=== PATIENT | male | born 1960 | race Caucasian/White ===

== ENCOUNTER 2024-06-13 06:47 | Day surgery (SDC) | payer OTHER ==
[~2024-06-13] VITALS: Ht 167.6 cm; Wt 84.1 kg
[~2024-06-13 06:47] MED LIST: SODIUM CHLORIDE 0.9% 1,000 ML ONE
[2024-06-13] MEDS ORDERED: ALBUTEROL SULFATE 2.5 MG/0.5 ML NEB SOLUTION NEB ONE (06:48)
[2024-06-13] MEDS ORDERED: LIDOCAINE 4% 50 ML SOLUTION TP ONE (06:48)
[2024-06-13] MEDS ORDERED: LIDOCAINE 2% 11 ML JELLY TP ONE (06:48)
[2024-06-13] MEDS ORDERED: BENZOCAINE 20% 50 MCG/SPRAY 57 GM TP ONE (06:48)
[2024-06-13] MEDS ORDERED: ASPI-1444 PO (07:25)
[2024-06-13] MEDS ORDERED: CHOL200059 PO (07:25)
[2024-06-13] MEDS ORDERED: ALEN70TA80 PO (07:25)
[2024-06-13] MEDS ORDERED: FURO20TA5 PO (07:31)
[2024-06-13] MEDS ORDERED: PANT-31 PO (07:31)
[2024-06-13] MEDS ORDERED: DOCU-385 PO (07:31)
[2024-06-13] MEDS ORDERED: TAMS0.4C94 PO (07:31)
[2024-06-13] MEDS ORDERED: SUCR1TAB2 PO (07:31)
[2024-06-13] MEDS ORDERED: MELO-107 PO (07:31)
[2024-06-13] MEDS ORDERED: LORA10TA7 PO (07:31)
[2024-06-13] MEDS ORDERED: TRAZ150T80 PO (07:31)
[2024-06-13] MEDS ORDERED: LEVO175T9 PO (07:31)
[2024-06-13] MEDS ORDERED: FERR325T27 PO (07:31)
[2024-06-13] MEDS ORDERED: MIDAZOLAM HCL 2 MG/2 ML VIAL ONE (07:55)
[2024-06-13] MEDS ORDERED: FentaNYL CITRATE PF 100 MCG/2 ML VIAL ONE (07:55)
[2024-06-13] MEDS: SODIUM CHLORIDE 0.9% 1,000 ML IV ONE (09:37)
[2024-06-13 10:01] VITALS: PULSE 90; RESP 16; O2SAT 99
[2024-06-13] MEDS ORDERED: MethylPREDNISolone SOD SUCC 125 MG/2 ML VIAL ONE (10:19)
[2024-06-13] MEDS: MethylPREDNISolone SOD SUCC 125 MG/2 ML VIAL IVP ONE (10:29)
== END 2024-06-13 11:40 | disposition home or self-care (01) ==
LOC: SURGERY 06:47
PROVIDERS: ATTEND Internal Medicine Critical Care Medicine
DX: J38.4 Edema of larynx (principal); B37.0 Candidal stomatitis; G47.30 Sleep apnea, unspecified; Z72.89 Other problems related to lifestyle; E78.00 Pure hypercholesterolemia, unspecified; M19.90 Unspecified osteoarthritis, unspecified site; G43.909 Migraine, unspecified, not intractable, without status migrainosus; Z87.891 Personal history of nicotine dependence
CPT/HCPCS: 31623; 87206; 87101; 87220; 87070; 88108; 31624; 94640; 71045; 87015; J3010; J2250; J2919; J7030; J7613; Z7610

== ENCOUNTER 2024-12-26 06:47 | Day surgery (SDC) | payer OTHER ==
[~2024-12-26] VITALS: Ht 167.6 cm; Wt 86.4 kg
[~2024-12-26 06:47] MED LIST changes: +ALEN70TA80 PO; +ASPI-1444 PO; +CHOL200059 PO; +DOCU-385 PO; +FERR325T27 PO; +FURO20TA5 PO; +LEVO175T9 PO; +LORA10TA7 PO; +MELO-107 PO; +PANT-31 PO; +SUCR1TAB2 PO; +TAMS0.4C94 PO; +TRAZ150T80 PO
[2024-12-26] MEDS: SODIUM CHLORIDE 0.9% 1,000 ML IV ONE (07:38)
[2024-12-26] MEDS ORDERED: FentaNYL CITRATE PF 100 MCG/2 ML VIAL ONE (08:56)
[2024-12-26] MEDS ORDERED: MIDAZOLAM HCL 2 MG/2 ML VIAL ONE (08:57)
[2024-12-26 09:50] VITALS: PULSE 73; RESP 15; O2SAT 100
[2024-12-26] MEDS ORDERED: BENZOCAINE 20% 50 MCG/SPRAY 57 GM ONE (12:00)
[2024-12-26] MEDS ORDERED: LIDOCAINE 2% 11 ML JELLY ONE (12:00)
[2024-12-26] MEDS ORDERED: ALBUTEROL SULFATE 2.5 MG/0.5 ML NEB SOLUTION NEB ONE (12:00)
[2024-12-26] MEDS ORDERED: ALBUTEROL SULFATE 2.5 MG/0.5 ML NEB SOLUTION ONE (12:00)
== END 2024-12-26 13:55 | disposition home or self-care (01) ==
LOC: SDS 06:47
PROVIDERS: ATTEND Internal Medicine Critical Care Medicine
DX: R05.3 Chronic cough (principal); R04.2 Hemoptysis; J38.4 Edema of larynx; B37.0 Candidal stomatitis; G43.909 Migraine, unspecified, not intractable, without status migrainosus; J45.909 Unspecified asthma, uncomplicated; G47.30 Sleep apnea, unspecified; M19.90 Unspecified osteoarthritis, unspecified site; Z79.899 Other long term (current) drug therapy; Z98.890 Other specified postprocedural states
CPT/HCPCS: 31623; 87206; 87101; 87220; 87070; 87015; 88108; 31624; 71045; J3010; J2250; J2919; J7030; J7613